=== PATIENT | female | born 2000 | race Caucasian/White ===

== ENCOUNTER → 2020-03-06 | Outpatient (CLI) | payer OTHER, SELFPAY | END | disposition home or self-care (01) | PROVIDERS: PCP Family Medicine; Referring Provider Obstetrics & Gynecology; Visit Provider Obstetrics & Gynecology | DX: O30.003 Twin pregnancy, unspecified number of placenta and unspecified number of amniotic sacs, third trimester (principal); Z3A.40 40 weeks gestation of pregnancy | CPT/HCPCS: 87081 ==

== ENCOUNTER 2020-03-12 02:30 | Inpatient (IN) | payer SELFPAY, OTHER ==
[2020-03-12] VITALS (15 sets, daily range): BP systolic 114–159; BP diastolic 64–109; PULSE 76–142; RESP 16–22; TEMP 37.1–37.6; O2SAT 96–100; BMI 28.7
--- NOTE | 2020-03-12 | PLAC_PTH ---
PATIENT: IGNACIA BANG LOC: [facility] U#:[id number] AGE/SX: 19/F ROOM: WP007 RE03/12/[address]: Dr. Liliam Farias MD : [id number] BED: 1 DIS: 03/14/2020 SPEC #: [id number] RECD: 03/12/20 04:44 STATUS: YARITZA CHA #: [id number] CRISTEL: 03/12/20 00:[address]: Liliam Farias DEPT: SURGICAL PATHOLOGY RECD BY: Willian Kemp ENTERED: 03/12/20 10:06 SP TYPE: PLACENTA OTHR DR: Dr. Barrera Davies MD Tissues: Placenta, NOS Procedures: Surgery Specimen Level V HEADER OPERATION: Primary section PRE-OP DIAGNOSIS: Twins, prolapsed cord of baby 1 TISSUE SUBMITTED: Placenta MICROSCOPIC DIAGNOSIS Twin placenta - dichorionic and diamniotic twin placenta. Placenta A (with a true knot in the umbilical cord, as per Dr. Farias): Placental disc - third trimester placenta (464 gm). - Focal intervillous and perivillous fibrin deposition and infarction (largest measuring 1.5 cm in greatest dimension. Membranes - no pathologic diagnosis. Umbilical cord - three blood vessels, a true knot and acute funisitis. Placenta B: Placental disc - third trimester placenta (385 gm). Membranes - no pathologic diagnosis. Umbilical cord - three blood vessels, no pathologic diagnosis. SJ:beba 03/14/20 COMMENT Case has been reviewed in consultation with Dr. Wei who concurs with the above diagnosis. IDC:AM MICROSCOPIC DESCRIPTION Slides are reviewed. GROSS DESCRIPTION SPECIMEN: TWIN PLACENTA / CLINICAL INFORMATION: A. Weight: A - 2.977 kg, at 1 minute 0, 5 minutes 0; B - 2.745 kg B. Gestational Age: 41 weeks C. Sex: A - Male, B - Male The specimen consists of two placental discs with attached membranes and umbilical cords. One of the placentas shows umbilical cord with a true knot with attached membranes. This placenta is designated as placenta A. per Dr. Farias. PLACENTA A: PLACENTAL WEIGHT (POST FIXATION): 464 gm PLACENTAL DIMENSIONS: 15 x 13 x 3.7 cm PLACENTAL SHAPE: Usual ovoid PLACENTAL WEIGHT FOR GESTATIONAL AGE: Within 10-99th percentile MEMBRANES - Present A. Insertion: Marginal B. Site of rupture from edge: At edge of placental disc C. Color of membrane: Saba-joshi D. Abnormalities: None UMBILICAL CORD - Present A. Color: Saba-joshi B. Insertion: Eccentric C. Length: 60 cm D. Diameter: 1 cm E. Number of vessels: Three F. Abnormalities: One true knot PLACENTA B: PLACENTAL WEIGHT (POST FIXATION): 385 gm PLACENTAL DIMENSIONS: 17 x 15 x 2.5 cm PLACENTAL SHAPE: Usual ovoid PLACENTAL WEIGHT FOR GESTATIONAL AGE: Within 10-99th percentile MEMBRANES - Present A. Insertion: Marginal B. Site of rupture from edge: At edge of placental disc C. Color of membrane: Saba-joshi D. Abnormalities: None UMBILICAL CORD - Present A. Color: Saba-joshi B. Insertion: Eccentric C. Length: 44 cm D. Diameter: 1 cm E. Number of vessels: Three F. Abnormalities: None PLACENTAL DISC - Present A. Color of surface: Saba-joshi B. surface abnormalities: None C. Maternal cotyledons: Intact with minimal tears D. Attached retro placental clot: No clot E. Cut surface: Dark red and spongy F. Lesions: None G. Separate clot: Absent SECTIONS SUBMITTED: 11 cassettes 1 - Dividing membrane 2 - Placenta B end 3 - Placenta B maternal end 4 - Placenta B peripheral membranes 5 & 6 - Placental disc B 7 - Placental A membranes 8 - Placenta A end 9 - Placental A maternal end 10 & 11 - Placental disc A AM:beba 03/13/20 TC:2 CPT: 70072 x2
[2020-03-12] MEDS: Oxytocin 30 units/NS 500 ml 30 UNITS/500 ML IV.SOLN 167 UNITS IV (03:50)
--- NOTE | 2020-03-12 04:02 | PCM.OPRPT ---
Delivery Classification: Stat Final STANLEY: 03/05/20 Final STANLEY Source: LMP Gestational age: 41 Weeks and 0 Days delinquency prevention social worker: Jayjay Morgan Type of Anesthesia:: General Implants Used: none Date of Procedure: 03/12/20 Pre-Operative Diagnosis: twins, prolapsed cord, breech baby 1 Post-Operative Diagnosis: same Indications for : - - twins, breech twin 1 w/ prolapsed cord Description of Procedure: I received a phone call that the patient was being transported to the hospital, that her programmable logic controller assembler had reported to labor and delivery that baby A was footling breech, complete and a prolapsed cord. The team was assembled, and we were awaiting her in the labor and delivery OR team when she arrived. I quickly scanned her as she arrived into the room and could see both heads and the abdomen. The patient was transferred to the operating table and quickly verbal consent was obtained for the surgery. Cord was protruding from the vagina. Time was not taken to obtain heart rates. However, as the patient was being intubated I did a quick exam and could not palpate a pulse in the cord that was prolapsing. I could feel feet of baby A and intact membranes in the head of baby B. The patient was placed under general anesthetic. Betadine was splashed on the abdomen. The patient was then draped in the section initiated. The patient was taken to the operating room. She was prepped and draped in the dorsal supine position with a leftward tilt. A Pfannenstiel skin incision was made approximately 2 cm above the symphysis pubis and carried through to underlying layer fascia with the scalpel. The fascia was incised incised in the midline and extended laterally with the Alvarado scissors. The fascia was dissected off the rectus muscles with blunt and sharp dissection. The rectus muscles were in the midline and the peritoneum was entered bluntly. The peritoneal incision was stretched and the bladder blade was placed. The uterine incision was made in a low transverse fashion with the scalpel and extended superiorly and inferiorly with blunt dissection. Baby B's buttocks were brought to the incision in the legs and hips were brought out easily. The shoulders and head were delivered easily in less than 10 seconds. The cord was clamped quickly clamped and cut because the was pale, limp and no heart rate was noted as I was clamping the cord. The amniotic membranes of baby B were ruptured bluntly and clear amniotic fluid returned. The infant's head was brought to the incision in the flexed position and delivered without difficulty. The remainder of the infant was delivered with gentle traction and fundal pressure in the standard fashion. The mouth and nares were bulb suctioned. The cord was clamped and cut as the was stimulated. The infant was handed off to the waiting nursing staff. The placenta was delivered with fundal massage and gentle traction in the standard fashion. The uterus was exteriorized and cleared of all clots and debris. The uterine incision was closed with #1 Vicryl in a running locked fashion. A second layer of the same suture was used in an imbricating fashion. The incision was examined and was found to be hemostatic. There is a small hematoma along the left side of the incision and a [id number] Vicryl suture was placed around this. This was observed for several minutes and not expanding. The uterus was placed back into the peritoneal cavity and hemostasis was again confirmed. The rectus muscles were examined and any bleeding was Bovie cauterized. The parietal peritoneum and rectus muscles were closed en bloc with an 0 Vicryl running suture. The surgical teams outer gloves were then changed. The rectus fascia was examined and any bleeding was Bovie cauterized and the rectus fascia was closed with 1 Vicryl suture in a running standard fashion. The subcutaneous tissue was examining and any bleeding was Bovie cauterized. The subcutaneous tissue was reapproximated with 3-0 Vicryl suture. The skin was closed in a subcuticular fashion by the BATCH PLANT SUPERVISOR with me present in the labor and delivery suite. I performed the remainder of the procedure with assistance. All sponge, lap, and needle counts were correct. The patient was taken to her room for recovery in a stable condition. Amniotic Membrane Rupture Type: Spontaneous Amniotic Fluid Description: Clear Placenta Disposition: Sent to Pathology Drain: Duenas to straight drain Cord Entanglement: None Esitmated Blood Loss (ml): 1000 Infant Gender: Male (1 minute): 0 (5 minute): 0 Delayed cord clamping: No Antibiotic Given: Ancef 2 grams IV x1 - after induction of anesthesia Complications: None - Admit VTE Documentation VTE Present on Admission: No VTE Mechan Device Prophylaxis: SCD's VTE Pharm Prophylaxis ordered?: No Reason prophylaxis not ordered:: Treatment Not Indicated Baby B - Information Amniotic Membrane Rupture Type: Artificial Presentation: Vertex - Operative Information Cord Entanglement: None B gender: Male
--- NOTE | 2020-03-12 04:14 | HP.PCM_ITS ---
History Date of Admission: 03/12/20 Final STANLEY: 03/05/20 Final STANLEY Source: LMP Gestational age: 41 Weeks and 0 Days History of this : This is a 19 year-old, 1 para 0 presents at 41 weeks gestation with dichorionic diamniotic twin gestation. Her reports that she went into labor at approximately 3 pm on 03/11/2020. He states that the shuttle veneering supervisor arrived around 5 PM and soon after her water broke. The shuttle veneering supervisor is not present for me to discuss the case with, but at some point, the cord prolapsed and the shuttle veneering supervisor called labor and delivery to inform us that the patient would be arriving with a footling breech and prolapsed cord completely dilated. An OB ERT was called. I arrived to labor and delivery and the ELECTRONICS ASSEMBLER AND TESTER and I were present and ready to perform an emergent section. Patient was brought directly to the operating room. The patient had been getting her routine care with her community service specialist. She did have an ultrasound in our office last week, and was counseled on risks of continuing the and home versus induction and delivery in a hospital setting. Patient at that point declined induction and planned home delivery. Smoking Status: Never smoker Alcohol: None Number of Fetus(es): 2 NST - FHR Rate Baby A Baseline: n/a - FHR Rate Baby B Baseline: n/a History Past Pregnancies: Past Pregnancies Delivery Date Name GA/ Weeks Outcome Route Wt Sex Labor Length Anesthesia Delivery Location Provider FOB Expected Infant Delivery Method: Stat Section Review of Systems Constitutional: Denies: Chills, Fever Eyes: Denies: Blurred vision HEENT: Denies: Difficulty Hearing Cardiovascular: Denies: Chest Pain Respiratory: Denies: Cough, Shortness of Breath Gastrointestinal: Denies: Diarrhea Genitourinary: Denies: Dysuria Skin: Denies: Rash Neurological: Denies: Change in Speech, Slurred speech Physical Exam General: Well developed, Well nourished, - - uncomfortanble, panting with contractions Cardiovascular: Regular rate Lungs: Normal air movement Abdomen: Soft, Non Tender, Non-Distended, Gravid Extremities:: No edema Neurological: Neuro grossly intact ASSEMBLY ADJUSTER: Normal external genitalia - cord prolapsing from vagina Cervix Dilation (cm): 10 Assessment/Plan This is a 19 year-old, @ 41 weeks, footling breech, prolapsed cord baby A, baby b vtx and membranes intact team was ready for stat c/s patient consented verbally for stat c/s as twin with both still in utero and cord prolapse.
[2020-03-12 04:31] LABS: Absolute Lymphocyte Count 1.12 X10^3/uL (0.83-4.51); Absolute Neutrophil Count 21.9 X10^3/uL (2.0-7.7); Basophil# 0.05 X10^3/uL; Basophil% 0.2 % (0-1); Eosinophil# 0.02 X10^3/uL; Eosinophils% 0.1 % (0-5); Hematocrit 40.4 % (37-47); Hemoglobin 14.2 g/dL (12.0-15.0); Lymphocyte # 1.12 X10^3/ul (4.0); Lymphocyte % 4.6 % (19-41); Mean Corp Hgb Conc 35.1 g/dL (32-36); Mean Corpuscular Hgb 32.1 pg (27.0-32.0); Mean Corpuscular Volume 91.4 fL (81-99); Mean Platelet Vol. 12.4 fl (6.2-12.0); Monocyte# 1.35 X10^3/uL; Monocyte% 5.5 % (0-10); NRBC Flagged by Analyzer 0 % (0-5); Neutrophil # 21.87 X10^3/uL (2.7-7.7); Neutrophil % 88.8 % (47-70); POSITIVE DIFFERENTIAL YES; Platelet Count 193 K/mm3 (150-450); RBC Distribution Width CV 11.6 % (11.6-14.6); RBC Distribution Width SD 38.8 fl (35.1-43.9); Red Blood Count 4.42 M/mm3 (4.2-5.4); White Blood Count 24.6 K/mm3 (4.4-11.0)
[2020-03-12] MEDS: HYDROmorphone 1 MG/ML Syringe IV ×2 (04:33→07:44)
[2020-03-12 04:35] LABS: Differential Indicated SCAN CRITERIA MET
[2020-03-12 06:40] LABS: Rubella IgG 0.7 IU/mL
[2020-03-12] MEDS: Lactated Ringers 1,000 ML 100 ML IV (07:00)
[2020-03-12 07:07] LABS: HIV - WCH Non-Reactive (Nonreactive); Hepatitis B Surface Antigen Non-Reactive (Nonreactive); Hepatitis C Antibody Non-Reactive (Nonreactive)
[2020-03-12] MEDS: Ketorolac 30 MG/ML Syringe IV ×3 (09:30→20:52)
[2020-03-12] MEDS: Cefazolin 1 GM/50 ML BAG IV ×2 (12:28→19:29)
[2020-03-12] MEDS: oxyCODONE 5 MG Tablet PO ×2 (12:29→18:48)
[2020-03-12] MEDS: Senna/Docusate Sodium 1 Tablet PO (12:29)
--- NOTE | 2020-03-12 15:56 | CASEMGMT ---
Social Work Labor and Delivery Consult received and noted. Received report from weigher and charger this date regarding twin delivery, with one loss and one twin still living. Will plan to see mother of babies tomorrow, 03.13.2020, for assessment/support/coping/resources. Working today on gathering appropriate resources and support options pertinent to the dynamics of this family's loss. -RHONDA Johnston, SALES NEGOTIATOR
[2020-03-12 17:49] LABS: Bacteria 0 SEEN /hpf (None Seen); Mucous, Urine 0 SEEN /hpf (<or=2+); Squamous Epithelial Cells - UA 0 SEEN /hpf (5-10)
[2020-03-12 18:09] LABS: Color, Urine Yellow (Yellow); Glucose, Dipstick Normal (Normal); Ketone-Dipstick Negative (Negative); Leukocyte Esterase-Dipstick 100 /ul (Negative); Nitrite-Dipstick Negative (Negative); Occult Blood-Urine 150 /ul (Negative); Protein-Dipstick Negative (Negative); Specific Gravity, Urine 1.005 (1.002-1.030); Urine Bilirubin Dipstick Negative (Negative); Urine Clarity Clear (Clear); Urine Urobilinogen Normal (Normal)
[2020-03-12 18:35] LABS: Red Blood Cells-Urine 0-5 SEEN /hpf (0-5); White Blood Cells 0-5 SEEN /hpf (0-5)
[2020-03-12 18:38] LABS: Amphetamine Urine VISTA NEGATIVE (<1000 ng/mL); Barbiturate Urine VISTA NEGATIVE (< 200 ng/mL); Benzodiazepine Urine VISTA NEGATIVE (< 200 ng/mL); Cocaine Urine VISTA NEGATIVE (< 300 ng/mL); Ecstacy Urine VISTA NEGATIVE (< 500 ng/mL); Methadone Urine VISTA NEGATIVE (< 300 ng/mL); PCP Urine VISTA NEGATIVE (< 25 ng/mL); THC Urine VISTA NEGATIVE (< 50 ng/mL); Vista UDS pH Range 6
[2020-03-12] MEDS: 0.9% Saline Lock 10 ML Syringe IV ×2 (19:30→20:54)
[2020-03-12 20:01] LABS: Chlamydia Trachomatis by PCR Negative (Negative); Neisserai gonorrhoeae by PCR Negative (Negative); Probe Check PASS; Sample Adequacy Control PASS; Specimen Processing Control PASS
--- NOTE | 2020-03-12 22:35 | NURSING ---
Addendum entered by Liliya Boyer 03/13/20 07:33: POC -plan of care Original Note: late entry by Kimberly RN event occurred 03/12/20 0153 This recharger received call from Vonda Valera baby formula worker about patient coming into unit in approximately 20-25 minutes. Cloth Inspector stated that patient had seen Dr. Black in office for the first time last week. Cloth Inspector states that patient is expecting twins, completely dilated with a prolapsed cord and footling breech. After hanging up with baby formula worker, this RN immediately organized staff and prepared them for patients arrival. 0157 Dr Farias called and informed of patient's pending arrival; she stated she would be immediately in and to take patient straight to OR#1 for assessment and delivery 0159 Anesthesia and EGG GRADER called for patients pending arrival and anticipated POC; both confirm they are on their way to unit. 0200 Early Childhood Special Educator and RTT called and informed of patient's pending arrival and prepped for POC. All staff on unit preparing for patients arrival and preparing c/s room and resuscitation room. 0202 Anesthesia in c/s #1 0203 subassembly supervisor called and updated, states she will be coming down to unit. Special Care Nursery informed and states they are available if needed. 0206 FIBER OPTICS ENGINEER in room for delivery 0207 hospice admitting clerk in room, assisting nursery nurse, extra staff and FIBER OPTICS ENGINEER preparing resuscitation room. 0213 Dr. Farias on unit 0223 JONA on unit 0233 patient enters c/s room on stretcher laying on right side, ultrasound preformed by Dr. Farias immediately to discover both heads in abdomen, time not taken to obtain FHR per Dr. Farias; verbal consent received for section and staff proceeded with primary c/s; Dr. Farias was unable to palpate FHR on cord that was prolapsed during intubation of patient.
[2020-03-13] MEDS: oxyCODONE 5 MG Tablet PO ×4 (00:54→18:28)
[2020-03-13 01:05] VITALS: BP 125/72; PULSE 94; RESP 16; TEMP 36.9
[2020-03-13] MEDS: Ketorolac 30 MG/ML Syringe IV ×4 (03:36→20:44)
[2020-03-13] MEDS: 0.9% Saline Lock 10 ML Syringe IV ×7 (03:36→20:43)
[2020-03-13 04:17] LABS: Hemoglobin 9.9 g/dL (12.0-15.0); Mean Corp Hgb Conc 34.1 g/dL (32-36); Mean Corpuscular Hgb 32.1 pg (27.0-32.0); Mean Corpuscular Volume 94.2 fL (81-99); Platelet Count 170 K/mm3 (150-450); RBC Distribution Width CV 12.2 % (11.6-14.6); RBC Distribution Width SD 41.9 fl (35.1-43.9); Red Blood Count 3.08 M/mm3 (4.2-5.4); White Blood Count 17.1 K/mm3 (4.4-11.0)
[2020-03-13] MEDS: Senna/Docusate Sodium 1 Tablet PO (05:06)
--- NOTE | 2020-03-13 07:55 | PCM.PN.OB ---
Subjective: pain well controlled, average lochia - Physical Exam Vitals/I&O's: Vital Signs Temp Pulse Resp BP Pulse Ox 98.5 F 94 16 125/72 H 96 03/13/20 01:05 03/13/20 01:05 03/13/20 01:05 03/13/20 01:05 03/12/20 19:36 Oxygen Delivery Method Room Air Weight: 73.482 kg Body Mass Index (BMI) 28.7 Intake and Output for Last 24 Hours 03/11/20 03/12/20 03/13/20 23:59 23:59 23:59 Intake Total 2300 / 2300 Output Total 2800 / 2800 1100 / 1100 Balance -500 / -500 -1100 / -1100 General: Alert, Cooperative, No apparent distress Cardiovascular: Regular rate Abdomen: Soft, Distended - moderately, Tender - appropriately, - - fundus firm below umbilicus Extremities: Edema - trace Skin: Incision - bandage is clean, dry and intact Laboratory Results 03/12/20 02:35: Blood Type Cancelled, A1 Antigen Typing Cancelled, Rho(D) Type Cancelled, Antibody Screen Cancelled 03/12/20 13:50: Blood Type O POSITIVE, Antibody Screen NEGATIVE 03/12/20 17:00: Urine Color Yellow, Urine Clarity Clear, Urine pH 7.0, Ur Specific [place] 1.005, Urine Protein Negative, Urine Glucose (UA) Normal, Urine Ketones Negative, Urine Occult Blood 150 H, Urine Nitrite Negative, Urine Bilirubin Negative, Urine Urobilinogen Normal, Ur Leukocyte Esterase 100 H, Urine RBC 0-5 SEEN, Urine WBC 0-5 SEEN, Ur Squamous Epith Cells 0 SEEN, Urine Bacteria 0 SEEN, Urine Mucus 0 SEEN 03/12/20 17:00: Chlam trachomat DNA PCR Negative, N.gonorrhoeae DNA (PCR) Negative 03/12/20 17:00: Urine Opiates Screen NEGATIVE, Urine Methadone Screen NEGATIVE, Ur Barbiturates Screen NEGATIVE, Ur Phencyclidine Scrn NEGATIVE, Ur Amphetamines Screen NEGATIVE, U Methamphetamin-MDMA NEGATIVE, U Benzodiazepines Scrn NEGATIVE, Urine Cocaine Screen NEGATIVE, U Cannabinoids Screen NEGATIVE, Ur Drug Screen Comment 03/13/20 04:10: WBC 17.1 H, RBC 3.08 L, Hgb 9.9 L, Hct 29.0 L, MCV 94.2, MCH 32.1 H, MCHC 34.1, RDW Std Deviation 41.9, RDW Coeff of Jon 12.2, Plt Count 170, MPV 11.0 Current Medications Acetaminophen (Tylenol) 1,000 mg PO Q8H PRN PRN PRN Reason: Pain Score 1-3/10;Temp>99.6F Bisacodyl (Dulcolax) 10 mg RECTAL UD PRN PRN Reason: If no BM Hydrocortisone (Hytone) 1 applic TOPICAL TID PRN PRN; Protocol PRN Reason: Discomfort Naloxone HCl 4 mg/ Dextrose 504 mls @ 0 mls/hr IV .Q0M PRN; Protocol PRN Reason: Respiratory depression Ketorolac Tromethamine (Toradol (Bkc)) 30 mg IV Q6H SARA Stop: 03/14/20 03:01 Last Admin: 03/13/20 03:36 Dose: 30 mg Documented by: Methylergonovine Maleate (Methergine) 0.2 mg IM X1 PRN PRN Reason: Uterine Atony Naloxone HCl (Narcan) 0.02 mg IV Q1M PRN PRN Reason: RR <10 and pt unresponsive Naproxen (Naprosyn) 250 - 500 mg PO Q8H PRN PRN PRN Reason: Pain Score 1-3/10 Ondansetron HCl (Zofran) 4 mg IV Q4H PRN PRN PRN Reason: Nausea Oxycodone HCl (Oxyir) 5 - 10 mg PO Q4H PRN PRN PRN Reason: Pain Score 4-10/10 Last Admin: 03/13/20 05:05 Dose: 10 mg Documented by: Prochlorperazine Edisylate (Compazine Iv) 10 mg IV Q6H PRN PRN PRN Reason: NAUSEA Senna/Docusate Sodium (Senokot-S, Johanna-Colace) 1 - 2 tablet PO DAILY PRN PRN Reason: Constipation Last Admin: 03/13/20 05:06 Dose: 1 tablet Documented by: Simethicone (Mylicon) 80 mg PO PCHS PRN PRN Reason: Indigestion/stomach pain Last Admin: 03/13/20 01:41 Dose: 80 mg Documented by: Sodium Chloride () 5 - 15 ml IV UD PRN PRN Reason: SALINE FLUSH Last Admin: 03/13/20 03:39 Dose: 10 ml Documented by: Medical Necessity - Tobacco Use Smoking Status: Never smoker Assessment/Plan postop day #1 s/p stat c/s, twin , twin A stillborn patient is doing well from surgery standpoint, no flatus or bm. Pain well controlled, encouraged patient to work on nursing and stay until tomorrow ambulate
[2020-03-13 09:45] VITALS: BP 120/74; PULSE 108; RESP 20; TEMP 37.6; O2SAT 96
[2020-03-13] MEDS: Ondansetron 4 MG/2 ML Vial IV ×2 (10:16→20:38)
[2020-03-13 14:00] VITALS: BP 118/77; PULSE 96; TEMP 37.3; O2SAT 95
--- NOTE | 2020-03-13 14:26 | NURSING ---
at 1420, bakari home present to come and take baby to home. support given
--- NOTE | 2020-03-13 18:09 | NURSING ---
Vomited moderate amount undigested food. Complaining of abdominal pain. Abdomen firm with bowel sounds present. Isabel Marinelli called and notified. Will call back
--- NOTE | 2020-03-13 18:21 | NURSING ---
anuradha returned call, orders for npo with sips of clears and cbcd now
[2020-03-13 19:04] LABS: Absolute Lymphocyte Count 1.51 X10^3/uL (0.83-4.51); Absolute Neutrophil Count 14.5 X10^3/uL (2.0-7.7); Basophil# 0.03 X10^3/uL; Basophil% 0.2 % (0-1); Eosinophil# 0.01 X10^3/uL; Eosinophils% 0.1 % (0-5); Hematocrit 30.1 % (37-47); Hemoglobin 10.4 g/dL (12.0-15.0); Lymphocyte # 1.51 X10^3/ul (4.0); Lymphocyte % 8.6 % (19-41); Mean Corp Hgb Conc 34.6 g/dL (32-36); Mean Corpuscular Hgb 32.7 pg (27.0-32.0); Mean Corpuscular Volume 94.7 fL (81-99); Mean Platelet Vol. 11.4 fl (6.2-12.0); Monocyte# 1.43 X10^3/uL; Monocyte% 8.1 % (0-10); NRBC Flagged by Analyzer 0 % (0-5); Neutrophil # 14.53 X10^3/uL (2.7-7.7); Neutrophil % 82.4 % (47-70); Platelet Count 201 K/mm3 (150-450); RBC Distribution Width CV 12.1 % (11.6-14.6); RBC Distribution Width SD 42.5 fl (35.1-43.9); Red Blood Count 3.18 M/mm3 (4.2-5.4); White Blood Count 17.6 K/mm3 (4.4-11.0)
--- NOTE | 2020-03-13 19:37 | NURSING ---
1830 reporting I did just pass gas.
[2020-03-13 20:50] VITALS: BP 123/78; PULSE 97; RESP 18; TEMP 36.7; O2SAT 95
--- NOTE | 2020-03-13 22:45 | NURSING ---
RN received phone call from Juan Marinelli CNM at this time for pt status update. RN notified CNM of latest pt labs, including WBC 17.6 from 17.1 and Hgb 9.9 to 10.4, with other labs trending more towards normal limits. RN also notified CNM of pt tenderness with uterine palpation and abdominal distension. CNM also notified of pt passing gas and feeling relief with RN administering mylicon EMILY. RN to continue with current plan of care.
--- NOTE | 2020-03-13 23:45 | NURSING ---
stretch morgan noted
[2020-03-14] MEDS: oxyCODONE 5 MG Tablet PO (00:01)
[2020-03-14] MEDS: Ketorolac 30 MG/ML Syringe IV (03:07)
[2020-03-14] MEDS: 0.9% Saline Lock 10 ML Syringe IV (03:08)
[2020-03-14 03:20] VITALS: BP 132/90; PULSE 95; RESP 20; TEMP 37.4; O2SAT 96
--- NOTE | 2020-03-14 03:20 | NURSING ---
Addendum entered by Sonya Stafford 03/14/20 04:18: Episode occurred 30min after oxyIR administration per pt. Original Note: Pt reported vomiting after last oxyIR administration. RN encouraged pt to attempt using other medications for pain relief. RN unable to visualize emesis. Will continue to monitor pt.
[2020-03-14] MEDS: Acetaminophen 500 MG Tablet 1000 MG PO (05:39)
[2020-03-14 08:06] LABS: Rapid Plasmin Reagin (RPR) NONREACTIVE (NONREACTIVE)
[2020-03-14 08:40] VITALS: BP 128/81; PULSE 82; RESP 16; TEMP 37
--- NOTE | 2020-03-14 09:00 | DCINST_ITS ---
Discharge Diet: No Restrictions Discharge Activity: Return to Normal Activity, May Not Drive - for 2 weeks, May not drive while taking narcotic pain medications., May Shower, May Take a Tub Bath - in 7 days. May resume sexual activity in: 4-6 weeks Lifting Restrictions: 20 pounds Additional Activity Instructions:: Nothing in the vagina for 4-6 weeks. You may return to work/school in 6 weeks. Call your doctor if your incision/area has: Continuous Slow Oozing, Sudden Increased Bleeding, Increased Pain/ Swelling, Increased Redness, Foul Smelling Discharge Call your doctor if you observe: Fever of 101 or Higher, Using more than one pad per hour - for 2 hours Suture Line Care: Avoid Pulling/Pushing, Avoid Pinching/Bending Cleanse incision/area with: Keep Dressing Clean & Dry Additional Instructions: If you experience any of the following, contact your healthcare provider. * Bleeding that soaks a pad every hour for 2 hours * Fever 100.4 or higher * Unrelieved incision or abdominal pain * Swelling, redness, discharge or bleeding from your incision or episiotomy site * Your incision begins to separate * Problems urinating (including inability to urinate or burning while urinating). * Visual changes * Severe headache * Flu-like symptoms * Pain or redness in one of both of your breasts * Pain, warmth, tenderness or swelling in your legs, especially the calf area * Frequent nausea and vomiting * Symptoms of depression or anxiety If you experience any of the following, call 911 or go to the nearest Emergency Room. * Chest pain * Problems breathing * Seizure activity * Partial or complete paralysis of a body part, slurred speech, weakness or drooping of the face, or a sudden inability to walk or hold your balance Allergies/Adverse Reactions: Allergies No Known Allergies Allergy (Verified 03/12/20 04:21) Medications to take at Discharge One Tablet 1 tab PO DAILY 03/12/20 Ibuprofen [Motrin] 800 mg PO TID PRN PRN #60 tab 03/13/20 Oxycodone [Oxyir] 5 mg PO Q6H PRN PRN 7 Days #15 tab 03/13/20 The following prescriptions were given: Ibuprofen [Motrin] 800 mg PO TID PRN PRN #60 tab PRN Reason: Pain Transmission Status: Received by [facility] [id number] Oxycodone [Oxyir] 5 mg PO Q6H PRN PRN 7 Days #15 tab PRN Reason: severe pain Transmission Status: Received by [facility] [id number] Follow-Up: Call to make an appointment with your doctor for an incision check in 1-2 weeks. You will also need a 6 week post- follow up appointment. Test results from this visit will be discussed in further detail at your follow- up appointment, if applicable. Please Follow Up With: Liliam Farias MD - Call to make an appointment for an incision check in 1-2 [phone] When: You will need a post check in 6 weeks. Primary Care Physician: Barrera Davies MD [Primary Care Provider] -
--- NOTE | 2020-03-14 09:00 | PN.OBGYN_ITS ---
Subjective: pain well controlled, average lochia. No further emesis. +flatus, no BM. feliz. clear liquids - Physical Exam Vitals/I&O's: Vital Signs Temp Pulse Resp BP Pulse Ox 98.6 F 82 16 128/81 H 96 03/14/20 08:40 03/14/20 08:40 03/14/20 08:40 03/14/20 08:40 03/14/20 03:20 Oxygen Delivery Method Room Air Weight: 73.482 kg Body Mass Index (BMI) 28.7 Intake and Output for Last 24 Hours 03/12/20 03/13/20 03/14/20 23:59 23:59 23:59 Intake Total 2300 / 2300 Output Total 2800 / 2800 1100 / 1100 Balance -500 / -500 -1100 / -1100 General: Alert, Cooperative, No apparent distress Abdomen: Soft, Distended - moderately, Tender - appropriately Extremities: Edema Skin: Incision - bandage clean dry and intact Laboratory Results 03/12/20 02:35: RPR NONREACTIVE 03/13/20 18:35: WBC 17.6 H, RBC 3.18 L, Hgb 10.4 L, Hct 30.1 L, MCV 94.7, MCH 32.7 H, MCHC 34.6, RDW Std Deviation 42.5, RDW Coeff of Jon 12.1, Plt Count 201, MPV 11.4, Immature Gran % (Auto) 0.600, Neut % (Auto) 82.4 H, Lymph % (Auto) 8.6 L, Schleicher % (Auto) 8.1, Eos % (Auto) 0.1, Baso % (Auto) 0.2, Absolute Neuts (auto) 14.5 H, Absolute Lymphs (auto) 1.51, Nucleated RBC % 0 Current Medications Acetaminophen (Tylenol) 1,000 mg PO Q8H PRN PRN PRN Reason: Pain Score 1-3/10;Temp>99.6F Last Admin: 03/14/20 05:39 Dose: 1,000 mg Documented by: Bisacodyl (Dulcolax) 10 mg RECTAL UD PRN PRN Reason: If no BM Hydrocortisone (Hytone) 1 applic TOPICAL TID PRN PRN; Protocol PRN Reason: Discomfort Naloxone HCl 4 mg/ Dextrose 504 mls @ 0 mls/hr IV .Q0M PRN; Protocol PRN Reason: Respiratory depression Methylergonovine Maleate (Methergine) 0.2 mg IM X1 PRN PRN Reason: Uterine Atony Naloxone HCl (Narcan) 0.02 mg IV Q1M PRN PRN Reason: RR <10 and pt unresponsive Naproxen (Naprosyn) 250 - 500 mg PO Q8H PRN PRN PRN Reason: Pain Score 1-3/10 Ondansetron HCl (Zofran) 4 mg IV Q4H PRN PRN PRN Reason: Nausea Last Admin: 03/13/20 20:38 Dose: 4 mg Documented by: Oxycodone HCl (Oxyir) 5 - 10 mg PO Q4H PRN PRN PRN Reason: Pain Score 4-10/10 Last Admin: 03/14/20 00:01 Dose: 5 mg Documented by: Prochlorperazine Edisylate (Compazine Iv) 10 mg IV Q6H PRN PRN PRN Reason: NAUSEA Senna/Docusate Sodium (Senokot-S, Johanna-Colace) 1 - 2 tablet PO DAILY PRN PRN Reason: Constipation Last Admin: 03/13/20 05:06 Dose: 1 tablet Documented by: Simethicone (Mylicon) 80 mg PO PCHS PRN PRN Reason: Indigestion/stomach pain Last Admin: 03/13/20 22:48 Dose: 80 mg Documented by: Sodium Chloride () 5 - 15 ml IV UD PRN PRN Reason: SALINE FLUSH Last Admin: 03/14/20 03:08 Dose: 10 ml Documented by: Medical Necessity - Tobacco Use Smoking Status: Never smoker Assessment/Plan POD#2 s/p stat c/s doing well, mild ileus. Recommend patient stay until BM but she declines due to calling hours and for twin A. D/ wher continue stool softeners, if emesis or other issue will need to call office or return she is comfortable w/ plan
--- NOTE | 2020-03-14 10:34 | DS.PCM_ITS ---
Discharge Date and Diagnosis Date of Admission: 03/12/20 Date of Discharge: 03/14/20 Hospital Course and Treatment Operations: - - Primary low transverse section via Pfannenstiel skin incision Procedures: None Summary of Care Provided: The patient is a 19 year old 1 para 0 female admitted at 41 weeks gestation for cord prolapse of twin A. She underwent a stat low transverse section via Pfannenstiel skin incision. She had a double layer closure of the uterus with 0 Vicryl sutures. The surgery was performed without complications under general anesthetic because of baby A not having a heartbeat and having a prolapsed cord for over 30 minutes. Baby A was born without a pulse or respiratory effort, pronounced after extensive resuscitative efforts by the pediatrics team. Baby B was vigorous. Postoperatively, the patient had an ileus with vomiting on postoperative day 1. She was placed on clear fluids. On postoperative day #2 she was passing flatus but not had a bowel movement yet. I recommended that she stay till postoperative day #3, but patient declines. They have calling hours for her son today and will leave regardless of my recommendations. Patient was discharged home but I discussed with them the importance of calling if she gets a fever, vomiting or any other concerns. They were comfortable with this plan. She was discharged home with routine instructions and prescriptions and to follow-up in my office in 1-2 in 6 weeks or as needed. We discussed the use of pain medications and stool softeners. [] - Physical Exam Vitals/I&O's: Vital Signs Temp Pulse Resp BP Pulse Ox 98.6 F 82 16 128/81 H 96 03/14/20 08:40 03/14/20 08:40 03/14/20 08:40 03/14/20 08:40 03/14/20 03:20 Oxygen Delivery Method Room Air Weight: 73.482 kg Body Mass Index (BMI) 28.7 Intake and Output for Last 24 Hours 03/12/20 03/13/20 03/14/20 23:59 23:59 23:59 Intake Total 2300 / 2300 Output Total 2800 / 2800 1100 / 1100 Balance -500 / -500 -1100 / -1100 Laboratory Results 03/12/20 02:35: RPR NONREACTIVE 03/13/20 18:35: WBC 17.6 H, RBC 3.18 L, Hgb 10.4 L, Hct 30.1 L, MCV 94.7, MCH 32.7 H, MCHC 34.6, RDW Std Deviation 42.5, RDW Coeff of Jon 12.1, Plt Count 201, MPV 11.4, Immature Gran % (Auto) 0.600, Neut % (Auto) 82.4 H, Lymph % (Auto) 8.6 L, [place] % (Auto) 8.1, Eos % (Auto) 0.1, Baso % (Auto) 0.2, Absolute Neuts (auto) 14.5 H, Absolute Lymphs (auto) 1.51, Nucleated RBC % 0 Current Medications Acetaminophen (Tylenol) 1,000 mg PO Q8H PRN PRN PRN Reason: Pain Score 1-3/10;Temp>99.6F Last Admin: 03/14/20 05:39 Dose: 1,000 mg Documented by: Bisacodyl (Dulcolax) 10 mg RECTAL UD PRN PRN Reason: If no BM Hydrocortisone (Hytone) 1 applic TOPICAL TID PRN PRN; Protocol PRN Reason: Discomfort Naloxone HCl 4 mg/ Dextrose 504 mls @ 0 mls/hr IV .Q0M PRN; Protocol PRN Reason: Respiratory depression Methylergonovine Maleate (Methergine) 0.2 mg IM X1 PRN PRN Reason: Uterine Atony Naloxone HCl (Narcan) 0.02 mg IV Q1M PRN PRN Reason: RR <10 and pt unresponsive Naproxen (Naprosyn) 250 - 500 mg PO Q8H PRN PRN PRN Reason: Pain Score 1-3/10 Ondansetron HCl (Zofran) 4 mg IV Q4H PRN PRN PRN Reason: Nausea Last Admin: 03/13/20 20:38 Dose: 4 mg Documented by: Oxycodone HCl (Oxyir) 5 - 10 mg PO Q4H PRN PRN PRN Reason: Pain Score 4-10/10 Last Admin: 03/14/20 00:01 Dose: 5 mg Documented by: Prochlorperazine Edisylate (Compazine Iv) 10 mg IV Q6H PRN PRN PRN Reason: NAUSEA Senna/Docusate Sodium (Senokot-S, Johanna-Colace) 1 - 2 tablet PO DAILY PRN PRN Reason: Constipation Last Admin: 03/13/20 05:06 Dose: 1 tablet Documented by: Simethicone (Mylicon) 80 mg PO PCHS PRN PRN Reason: Indigestion/stomach pain Last Admin: 03/14/20 09:38 Dose: 80 mg Documented by: Sodium Chloride () 5 - 15 ml IV UD PRN PRN Reason: SALINE FLUSH Last Admin: 03/14/20 03:08 Dose: 10 ml Documented by: Discharge Diet: No Restrictions Discharge Activity: Return to Normal Activity, May Not Drive - for 2 weeks, May not drive while taking narcotic pain medications., May Shower, May Take a Tub Bath - in 7 days. May resume sexual activity in: 4-6 weeks Additional Activity Instructions:: Nothing in the vagina for 4-6 weeks. You may return to work/school in 6 weeks. Call your doctor if your incision/area has: Continuous Slow Oozing, Sudden Increased Bleeding, Increased Pain/ Swelling, Increased Redness, Foul Smelling Discharge Call your doctor if you observe: Fever of 101 or Higher, Using more than one pad per hour - for 2 hours Suture Line Care: Avoid Pulling/Pushing, Avoid Pinching/Bending Cleanse incision/area with: Keep Dressing Clean & Dry Home Medications: Medications to take at Discharge One Tablet 1 tab PO DAILY 03/12/20 Ibuprofen [Motrin] 800 mg PO TID PRN PRN #60 tab 03/13/20 Oxycodone [Oxyir] 5 mg PO Q6H PRN PRN 7 Days #15 tab 03/13/20 Following Prescrptions Were Given to Patient: Ibuprofen [Motrin] 800 mg PO TID PRN PRN #60 tab PRN Reason: Pain Transmission Status: Received by [id number] Oxycodone [Oxyir] 5 mg PO Q6H PRN PRN 7 Days #15 tab PRN Reason: severe pain Transmission Status: Received by [id number] Primary Care Physician: Barrera Davies MD [Primary Care Provider] - Please Follow Up With: Liliam Farias MD - Call to make an appointment for an incision check in 1-2 [phone] When: You will need a post check in 6 weeks. Medical Necessity - Tobacco Use Smoking Status: Never smoker Meaningful Use Info Meaningful Use Diagnoses (Choose all that apply): None applicable
--- NOTE | 2020-03-14 11:33 | CHAPLAIN ---
Type of Pastoral Visit _x__ Initial Visit ___ Follow-up Visit ___ On-call Visit ___ General Patient Visit ___ Spiritual Assessment ___ Family Conference _x__ Bereavement ___ Rapid Response ___ Code Blue ___ Other (describe below) Pastoral Care Referral From ___ Patient _x__ Family ___ Nurse ___ Physician ___ Millinery Blocker ___ Dispute Resolution Analyst _x__ Other (describe below) Sacrament/Intervention _x__ Active listening ___ Anointing ___ Uatsdin _x__ Bereavement ___ Communion ___ Cortney exploration ___ ___ Life review _x__ Prayer ___ Reconciliation ___ Sacrament of Sick _x__ Supportive presence ___ Wedding ___ Other (describe below) Pastoral Comments learned of the stillbirth of one twin during rounds in on 03/13/20 from staff members; patient and her were approached by RN and SW about possible support and parents welcomed spiritual care support for this date 03/14/20; both mother and father of stillborn were in room along with living child; offered presence and listening support; gave Becky pradhan Notes on coping with loss of a child; father was talkative and expressed their mixture of miguel angel and sorrow; both parents indicate they have good family support for future days and that their cortney will be a foundation for them; father expresses appreciation for hospital staff in all they have done for us; father welcomes prayer
[2020-03-14] MEDS: Naproxen 250 MG Tablet PO (12:07)
[2020-03-14 13:52] VITALS: BP 122/85; PULSE 82; RESP 16; TEMP 37
[2020-03-15 11:26] LABS: Pathology Specimen OB SEE PATHOLOGY REPORT
== END 2020-03-14 13:45 | disposition home or self-care (01) | DRG 787 ==
PROVIDERS: Advanced Practice Midwife; Admitting Provider Obstetrics & Gynecology; PCP Family Medicine; Visit Provider Obstetrics & Gynecology
DX: O30.043 Twin pregnancy, dichorionic/diamniotic, third trimester (principal); O36.4XX1 Maternal care for intrauterine death, fetus 1; O48.0 Post-term pregnancy; O32.8XX1 Maternal care for other malpresentation of fetus, fetus 1; O69.0XX1 Labor and delivery complicated by prolapse of cord, fetus 1; Z3A.41 41 weeks gestation of pregnancy; Z37.3 Twins, one liveborn and one stillborn
CPT/HCPCS: 80307; 81001; 85025; 85027; 86592; 86703; 86762; 86803; 86850; 86900; 86901; 87340; 87491; 87591; 88307; 99218; 99251; J7120; A4216; G0378; G0463; J2405

== ENCOUNTER 2021-06-16 11:00 | Outpatient (CLI) | payer OTHER, SELFPAY ==
[2020-03-12 04:16] VITALS: BMI 28.7
[2021-06-16 11:09] VITALS: BP 127/80; PULSE 104; TEMP 36.7
[2021-06-16] MEDS: Lactated Ringers 1,000 ML 125 ML IV (11:20)
[2021-06-16 11:33] VITALS: BMI 30.3
--- NOTE | 2021-06-19 09:45 | OB.TRI.NOTE ---
HPI - General General Date of Admission: 06/16/21 Date of Service: 06/16/21 Chief Complaint: breech HPI Narrative IGNACIA BANG, is a 21-year-old 2 para 1 who presented at 38-1/7 weeks gestation with EDC of 06/29/2021 for external cephalic version. Patient was seen in the office last week and was diagnosed as having a breech baby. Risk benefits and alternatives to attempted external cephalic version at term were discussed with patient, questions were answered to her satisfaction she wanted to proceed. She arrived to labor and delivery and had monitoring. She denies any vaginal bleeding or leaking of fluid. No regular contractions. PFSH PFSH Home Medications One Tablet 1 tab PO DAILY 03/12/20 [History Last Taken 06/16/21 08:00] ibuprofen 800 mg PO TID PRN PRN #60 tab 03/13/20 [Rx Last Taken Unknown] ferrous sulfate 325 mg PO DAILY 06/16/21 [History Last Taken 06/16/21 08:00] Allergy/AdvReac Type Severity Reaction Status Date / Time No Known Allergies Allergy Verified 06/16/21 11:36 Social History (System 03/22/20 @ 12:10 by Jenn Haider) Smoking Status: Never smoker History Elective abortions Hx Para 0 Spontaneous abortions Hx # Term Pregnancies Ectopic pregnancies Hx # Pregnancies Multiple births # of living children ROS Constitutional Constitutional: Denies fatigue, fever(s) or malaise Eyes Eyes: Denies change in vision ENT HEENT: Denies dizziness or headache(s) Cardiovascular Cardiovascular: Denies chest pain, dyspnea or lightheadedness Respiratory/Chest Respiratory/Chest: Denies cough or dyspnea Gastrointestinal Gastrointestinal: Denies change in bowel habits Genitourinary Genitourinary: Denies burning urination or genital lesions Integumentary Integumentary: Denies rash Neurologic Neurologic: Denies confusion, dizziness, headache(s), numbness or weakness Physical Exam Const alert and no apparent distress General Appearance: cooperative HEENT normocephalic Resp normal respiratory effort Cardio regular rate GI soft to palpation GI Narrative: gravid, nontender, appropriate for gestational age Extremity no calf tenderness General Extremity: edema Skin no wounds Rashes: No rashes noted Psych activity/motor behavior normal NST FHR Rate Baby A Baseline: 160 Variability:: Moderate Accelerations:: 15 x 15 Decelerations:: None NST Reactive:: Yes FHR Category:: Category I Uterine Activity:: quiet Assessment & Plan (1) Supervision of other high risk pregnancies, third trimester: PLAN: Risk benefits and alternatives to attempted external cephalic version were reviewed with the patient, her questions were answered to her satisfaction she desired to proceed. Brief ultrasound was performed which revealed that actually the fetus had converted to vertex spontaneously since her last office visit. NST is reactive. Head does still seem somewhat unengaged but is definitely vtx.. Discussed with the patient follow-up in the office at the end of this week, or as needed. Patient is comfortable with this plan. (2) Breech presentation, antepartum: (3) 38 weeks gestation of : (4) Previous delivery affecting :
== END 2021-06-16 12:16 | disposition home or self-care (01) ==
LOC: WPOUT 11:02 → WP 11:03
PROVIDERS: PCP Family Medicine; Visit Provider Obstetrics & Gynecology
DX: O09.893 Supervision of other high risk pregnancies, third trimester (principal); O32.1XX0 Maternal care for breech presentation, not applicable or unspecified; O34.219 Maternal care for unspecified type scar from previous cesarean delivery; Z3A.38 38 weeks gestation of pregnancy
CPT/HCPCS: 96360; 59050; 59412; 99218; J7120; G0378

== ENCOUNTER 2021-07-01 01:10 | Inpatient (IN) | payer SELFPAY, OTHER ==
[2021-06-30 23:48] VITALS: BP 132/84; PULSE 104; TEMP 36.3
[2021-06-30 23:55] VITALS: BMI 30.7
[2021-07-01] VITALS (18 sets, daily range): BP systolic 115–142; BP diastolic 75–92; PULSE 83–108; RESP 16–18; TEMP 36.3–36.5; O2SAT 96–98
[2021-07-01] MEDS: Lactated Ringers 1,000 ML 200 ML IV (01:25)
[2021-07-01 01:47] LABS: Absolute Lymphocyte Count 1.71 X10^3/uL (0.83-4.51); Absolute Neutrophil Count 19.3 X10^3/uL (2.0-7.7); Basophil# 0.05 X10^3/uL; Basophil% 0.2 % (0-1); Eosinophil# 0.01 X10^3/uL; Hematocrit 41.4 % (37-47); Hemoglobin 14.7 g/dL (12.0-15.0); Lymphocyte # 1.71 X10^3/ul (0.83-4.51); Lymphocyte % 7.6 % (19-41); Mean Corp Hgb Conc 35.5 g/dL (32-36); Mean Corpuscular Hgb 32.3 pg (27.0-32.0); Mean Platelet Vol. 10.8 fl (6.2-12.0); Monocyte# 1.29 X10^3/uL; Monocyte% 5.7 % (0-10); NRBC Flagged by Analyzer 0 % (0-5); Neutrophil % 85.7 % (47-70); Platelet Count 221 K/mm3 (150-450); RBC Distribution Width CV 12.1 % (11.6-14.6); Red Blood Count 4.55 M/mm3 (4.2-5.4); White Blood Count 22.6 K/mm3 (4.4-11.0)
[2021-07-01 02:21] LABS: Bedside Glucose 133 mg/dL (70-110)
--- NOTE | 2021-07-01 02:38 | PCM.HP.OB ---
HPI - General General Date of Admission: 07/01/21 HPI Narrative IGNACIA BANG, is a 21 F who presents at 40w2d in labor. Maternal Data Information STANLEY Calculator Estimated Delivery Date Method Current WG Current Estimate 06/29/21 LMP (Uncertain) 40w 2d Other Estimates 07/01/21 Ultrasound #1 40w 0d PFSH PFSH Medical History (Updated 07/01/21 @ 02:[address] Rand Reyna, ) Family history of hearing loss at age younger than 7 years Stillborn, normal Home Medications One Tablet 1 tab PO DAILY 03/12/20 [History Last Taken 06/16/21 08:00] ibuprofen 800 mg PO TID PRN PRN #60 tab 03/13/20 [Rx Last Taken Unknown] ferrous sulfate 325 mg PO DAILY 06/16/21 [History Last Taken 06/16/21 08:00] Allergy/AdvReac Type Severity Reaction Status Date / Time No Known Allergies Allergy Verified 06/30/21 23:55 Surgical History (Updated 07/01/21 @ 02:[address] Rand Reyna, ) Previous section Social History (System 03/22/20 @ 12:10 by Jenn Haider) Smoking Status: Never smoker History Elective abortions Hx Para 1 Spontaneous abortions Hx # Term Pregnancies Ectopic pregnancies Hx # Pregnancies Multiple births # of living children NST FHR Rate Baby A Baseline: 135 Variability:: Moderate Accelerations:: 15 x 15 Decelerations:: None FHR Category:: Category I Uterine Activity:: Regular ctx Vital Signs Vital Signs Vital Signs: 06/30/21 23:48 Temperature 97.4 F L Temperature Source Temporal Pulse Rate 104 H Blood Pressure 132/84 H BP Systolic 132 BP Diastolic 84 Weight Weight: 168 lb 3.2 oz Body Mass Index (BMI) 30.7 Labs Labs Labs: Blood Type O POSITIVE Antibody Screen NEGATIVE Hct 41.4 % (37-47) Hgb 14.7 g/dL (12.0-15.0) Rubella IgG Antibody 0.7 IU/mL Hep Bs Antigen Non-Reactive (Nonreactive) HIV 1&2 Antibody Non-Reactive (Nonreactive) C.trachomatis DNA (PCR) Negative (Negative) Rhogam given: No Assessment & Plan (1) 40 weeks gestation of : PLAN: - Admit for routine intrapartum care - GBS negative - Discussed risks/benefits/alternatives of a TOLAC and patient desires to TOLAC - Patient declines epidural catheter placement and understands that if an emergent section is needed she will need general anesthesia - AROM performed for clear fluid - Pelvis adequate and EFW anticipated to be < 4500g - BG on admission - Expect (2) History of section: (3) History of IUFD:
[2021-07-01] MEDS: 0.9% Saline Lock 10 ML Syringe IV (04:04)
[2021-07-01] MEDS: Oxytocin 30 units/NS 500 ml 30 UNITS/500 ML IV.SOLN 334 UNITS IV (04:05)
--- NOTE | 2021-07-01 04:19 | OP.PCM_ITS ---
Problems Associated Problem List Diagnoses (1) History of section: (2) 40 weeks gestation of : (3) History of IUFD: Report of Operation Date of Procedure: 07/01/21 Pre-Operative Diagnosis: 40 week gestation, active labor, TOLAC, prior section Post-Operative Diagnosis: As above Surgery/Procedure Performed:: Description of Surgical Findings:: Infant delivered in left occiput anterior position. Loose nuchal cord x1 noted. Uterine incision intact. Surgeon: Rand Reyna Type of Anesthesia: None Special Medications: None Specimen's removed: Placenta Drains: None Estimated Blood Loss (mL): 200 Fluids Replaced: N/A Description of Procedure: The patient was complete and pushing. The head of the was delivered in left occiput anterior position. A loose nuchal cord was reduced. The anterior shoulder was delivered with gentle traction followed by the posterior shoulder and body of the infant. The infant was delivered without any force or delay, and a viable male infant was placed on the maternal abdomen. The cord was clamped and cut after 60 sec delay. Cord blood was obtained. The placenta was delivered with massage. The placenta was noted to be normal- appearing and intact with a three-vessel cord. There were several gushes of blood noted, and therefore the uterus was explored x1. Clot was removed from the uterus and the incision was noted to be intact. No retained placenta or membranes were noted. Methergine x1 was given. A first-degree vaginal laceration was repaired with 3-0 Vicryl in usual fashion. The fundus was firm and bleeding hemostatic. Vaginal sweep was performed. Apgars 9,9 Loose nuchal cord without compression x 1 Grafts/Implants Used: None Complications None Admit VTE Documentation VTE Present on Admission: No VTE Pharm Prophylaxis ordered?: No
[2021-07-01] MEDS: Methylergonovine 0.2 MG/ML Ampul IM (04:55)
[2021-07-01 05:16] LABS: Bedside Glucose 155 mg/dL (70-110)
[2021-07-01 06:06] LABS: Bedside Glucose 144 mg/dL (70-110)
[2021-07-01] MEDS: Ibuprofen 600 MG Tablet PO ×3 (06:09→21:36)
--- NOTE | 2021-07-01 07:36 | NURSING ---
pt stated she got up and used the restroom no c/o dizziness, states bleeding was okay, tolerated well and able to void
[2021-07-01 07:50] LABS: Absolute Lymphocyte Count 1.67 X10^3/uL (0.83-4.51); Absolute Neutrophil Count 22.9 X10^3/uL (2.0-7.7); Basophil# 0.06 X10^3/uL; Basophil% 0.2 % (0-1); Hematocrit 42.8 % (37-47); Hemoglobin 15.2 g/dL (12.0-15.0); Lymphocyte # 1.67 X10^3/ul (0.83-4.51); Lymphocyte % 6.3 % (19-41); Mean Corp Hgb Conc 35.5 g/dL (32-36); Mean Corpuscular Hgb 32.5 pg (27.0-32.0); Mean Corpuscular Volume 91.5 fL (81-99); Mean Platelet Vol. 10.7 fl (6.2-12.0); Monocyte# 1.75 X10^3/uL; Monocyte% 6.6 % (0-10); NRBC Flagged by Analyzer 0 % (0-5); POSITIVE DIFFERENTIAL YES; Platelet Count 265 K/mm3 (150-450); Red Blood Count 4.68 M/mm3 (4.2-5.4); White Blood Count 26.6 K/mm3 (4.4-11.0)
[2021-07-01 07:51] LABS: Differential Indicated SCAN CRITERIA MET
[2021-07-02 01:08] VITALS: BP 113/70; PULSE 71; RESP 16; TEMP 35.9
[2021-07-02 01:10] VITALS: BP 113/70; PULSE 71
[2021-07-02 06:26] LABS: Hemoglobin 13.1 g/dL (12.0-15.0); Mean Corp Hgb Conc 34.5 g/dL (32-36); Mean Corpuscular Hgb 32.3 pg (27.0-32.0); Mean Corpuscular Volume 93.6 fL (81-99); Mean Platelet Vol. 10.5 fl (6.2-12.0); Platelet Count 230 K/mm3 (150-450); RBC Distribution Width CV 12.3 % (11.6-14.6); RBC Distribution Width SD 42.5 fl (35.1-43.9); Red Blood Count 4.06 M/mm3 (4.2-5.4); White Blood Count 14.6 K/mm3 (4.4-11.0)
--- NOTE | 2021-07-02 07:58 | PN.OBGYN_ITS ---
Subjective Subjective patient seen at bedside, doing well. Patient reports good pain control. lochia mild. breast feeding. Objective Data Objective Data Vital Signs: Vital Signs Temp Pulse Resp BP Pulse Ox 96.6 F L 71 16 113/70 98 07/02/21 01:08 07/02/21 01:10 07/02/21 01:08 07/02/21 01:10 07/01/21 12:49 Oxygen Delivery Method Room Air Weight: 76.294 kg Body Mass Index (BMI) 30.7 Intake & Output: Intake and Output for Last 24 Hours 06/30/21 07/01/21 07/02/21 23:59 23:59 23:59 Intake Total 655.88 / 655.88 Output Total 1500 / 1500 Balance -844.12 / -844.12 Lab / Micro Data Result Diagrams: 07/02/21 06:10 Labs: Laboratory Results - last 24 hr 07/01/21 07:30: Diff Path Review March07/02/21 06:10: WBC 14.6 H, RBC 4.06 L, Hgb 13.1, Hct 38.0, MCV 93.6, MCH 32.3 H , MCHC 34.5, RDW Std Deviation 42.5, RDW Coeff of Jon 12.3, Plt Count 230, MPV 10.5 Micro: Microbiology 07/01/21 01:45 Mucosa - Nose SARS-CoV-2 Antigen (Rapid) - Final Physical Exam Const alert and oriented x3 General Appearance: cooperative HEENT normocephalic Neck General: normal visual inspection GI soft to palpation and non-distended GI Narrative: Fundus firm Extremity normal to inspection and no calf tenderness Skin no rashes or lesions noted Neuro oriented x3 and CN's II-XII intact bilaterally Psych mental status grossly normal Assessment & Plan (1) , delivered: PLAN: PPD# 1 , Doing well Routine care pain mgmt ambulation dc home
--- NOTE | 2021-07-02 08:00 | PCM.DC ---
Discharge Instructions Diet Discharge Diet: No restrictions Activity May resume sexual activity in: 6-8 weeks Dressing / Incision Call your doctor if you observe: Fever of 101 or Higher, Inability to urinate, Using more than 1 pad per hour and Uncontrolled pain Follow Up Care Please Follow Up With: Rand Reyna DO When: 1-2 weeks post and again at 6 weeks post . [phone] Test Results: Test results from this visit will be discussed in further detail at your follow-up appointment, if applicable. Discharge Plan Admission Admit Date/Time: 07/01/21 01:10 Attending Provider: Rand Reyna Primary Care Provider: Barrera Davies Instructions Forms: Information Discharge Orders/Prescriptions Prescriptions: New acetaminophen 500 mg Tablet 1,000 mg PO Q6H PRN PRN (Reason: Pain 1-10 Or Fever) Qty: 0 RF: 0 Continued One Tablet 1 tab PO DAILY RF: 0 ibuprofen 800 MG tablet 800 mg PO TID PRN PRN (Reason: Pain) Qty: 60 RF: 1 ferrous sulfate 325 mg (65 mg iron) Tablet 325 mg PO DAILY RF: 0 Referrals / Follow Up: Barrera Davies MD [Primary Care Provider] - Disposition Disposition (needs filled in before D/C Order can be placed): Home, Self Care
[2021-07-02 08:20] VITALS: BP 118/72; PULSE 88
[2021-07-02 08:24] VITALS: BP 118/72; PULSE 88; RESP 16; TEMP 36.6
[2021-07-02] MEDS: Ibuprofen 600 MG Tablet PO (09:59)
[2021-07-02 12:37] VITALS: BP 117/72; PULSE 93
[2021-07-02 12:39] VITALS: BP 117/72; PULSE 93; RESP 16; TEMP 36.8
[2021-07-02 12:58] LABS: Pathologist Review Reviewed
== END 2021-07-02 13:00 | disposition home or self-care (01) | DRG 807 ==
LOC: WPOUT 01:21 → WP 01:21
PROVIDERS: Advanced Practice Midwife; Admitting Provider Obstetrics & Gynecology; PCP Family Medicine; Visit Provider Obstetrics & Gynecology
DX: O34.219 Maternal care for unspecified type scar from previous cesarean delivery (principal); Z37.0 Single live birth; O69.81X0 Labor and delivery complicated by cord around neck, without compression, not applicable or unspecified; O70.0 First degree perineal laceration during delivery; Z3A.40 40 weeks gestation of pregnancy; Z87.59 Personal history of other complications of pregnancy, childbirth and the puerperium
CPT/HCPCS: 59025; 59050; 82962; 85025; 85027; 86850; 86900; 86901; 87426; 99218; J7120; A4216; G0378

== ENCOUNTER 2024-09-01 21:36 | Inpatient (IN) | payer SELFPAY, OTHER ==
[2024-09-01] VITALS (20 sets, daily range): BP systolic 123–147; BP diastolic 77–93; PULSE 47–95; RESP 16–18; TEMP 36.4–36.7; O2SAT 91–99; BMI 30.2
--- NOTE | 2024-09-01 20:29 | PCM.HP.OB ---
HPI - General General Date of Admission: 09/01/24 HPI Narrative IGNACIA BANG, is a 24 F at 40 weeks gestation who presents to triage with contractions that started earlier today. She has history of successful VBACs x 2 and desires an unmedicated labor and delivery. Maternal Data Information STANLEY Calculator Estimated Delivery Date Method Current WG Current Estimate 09/01/24 Manual 40w 0d Final STANLEY: 09/01/24 Final STANLEY Source: LMP PFSH PFSH Medical History (Updated 09/01/24 @ 22:56 by Rosa Leger CNM) Family history of hearing loss at age younger than 7 years Stillborn, normal Home Medications ?Medication ?Instructions ?Recorded ?Last Taken ?Type One Tablet 1 tab PO DAILY Check with primary 03/12/20 09/01/24 History doctor Allergy/AdvReac Type Severity Reaction Status Date / Time No Known Allergies Allergy Verified 09/01/24 20:04 Surgical History (Updated 09/01/24 @ 20:33 by Rosa Leger CNM) Previous section Social History (System 03/22/20 @ 12:10 by Jenn Haider) Smoking Status: Never smoker History Elective abortions Hx Para 4 Spontaneous abortions Hx # Term Pregnancies Ectopic pregnancies Hx # Pregnancies Multiple births # of living children NST FHR Rate Baby A Baseline: 140 Variability:: Moderate Accelerations:: 15 x 15 Decelerations:: None NST Reactive:: Yes FHR Category:: Category I Uterine Activity:: TOCO reading every 2-3 minutes ROS Eyes Eyes: Denies blurry vision, change in vision or spots in vision ENT HEENT: Denies dizziness or headache(s) Cardiovascular Cardiovascular: Denies abdominal pain, chest pain or dyspnea Respiratory/Chest Respiratory/Chest: Denies cough, dyspnea, shortness of breath at rest or shortness of breath with exertion Gastrointestinal Gastrointestinal: Denies abdominal pain, diarrhea or vomiting Genitourinary Genitourinary: Denies change in urinary stream, difficulty urinating or dysuria Musculoskeletal Musculoskeletal: Reports none Integumentary Integumentary: Denies rash Neurologic Neurologic: Denies dizziness, headache(s), memory loss or weakness Psychiatric Psychiatric: Reports none Vital Signs Vital Signs Vital Signs: 09/01/24 19:48 09/01/24 19:48 09/01/24 19:48 Temperature Temperature Source Pulse Rate 86 87 Respiratory Rate Blood Pressure 125/85 H BP Systolic 125 BP Diastolic 85 Pulse Ox 09/01/24 19:48 09/01/24 19:48 09/01/24 19:48 Temperature Temperature Source Temporal Pulse Rate Respiratory Rate 18 Blood Pressure BP Systolic BP Diastolic Pulse Ox 96 09/01/24 19:48 Temperature 98.0 F Temperature Source Pulse Rate Respiratory Rate Blood Pressure BP Systolic BP Diastolic Pulse Ox Weight Weight: 170 lb 6.677 oz Body Mass Index (BMI) 30.2 Physical Exam Const alert, oriented x3 and no apparent distress General Appearance: cooperative Orientation / Consciousness: awake Exam Limitations: no limitations HEENT normocephalic Head and Scalp: normal to inspection Eyes General Eye: normal appearance of both eyes Neck full ROM and no lymphadenopathy Lymph Lymphatic: no lymphadenopathy noted Chest inspection of chest normal Resp normal respiratory effort, normal air movement and clear to auscultation bilaterally Effort and Inspection: able to speak in complete sentences and symmetric chest movement Cardio regular rate and regular rhythm GI normal to inspection, nondistended, normoactive bowel sounds Manual OB Exam: presentation cephalic and dilated 4 Back/Spine normal ROM Extremity full ROM and no calf tenderness Skin no rashes or lesions noted General Skin Exam: no breakdown Neuro oriented x3 and CN's II-XII intact bilaterally Psych mental status grossly normal and thought process normal Labs Labs Labs: Blood Type O POSITIVE Antibody Screen NEGATIVE Hct 39.2 % (37-47) Hgb 14.1 g/dL (12.0-15.0) Syphilis Total Ab Non-reactive Rubella IgG Antibody 0.7 IU/mL Hep Bs Antigen Non-Reactive (Nonreactive) Hepatitis C Antibody Non-Reactive (Nonreactive) HIV 1&2 Antibody Non-Reactive (Nonreactive) Rhogam given: No Assessment & Plan (1) History of section: (2) 40 weeks gestation of : (3) Supervision of other high risk pregnancies, third trimester: (4) Hx successful (vaginal after ), currently : (5) Rubella non-immune status, antepartum: PLAN: Plan CE 4-5 cm/90/0 Admit to labor and delivery Routine labs Start IV and run fluids per orders GBS negative Anticipate / Dr. Hernandez notified of admission and desire for
[2024-09-01] MEDS: 0.9% Saline Lock 10 ML Syringe IV ×2 (21:55→22:35)
[2024-09-01 22:04] LABS: Absolute Lymphocyte Count 1.68 X10^3/uL (0.83-4.51); Basophil# 0.05 X10^3/uL; Basophil% 0.3 % (0-1); Hematocrit 39.2 % (37-47); Hemoglobin 14.1 g/dL (12.0-15.0); Lymphocyte # 1.68 X10^3/ul (0.83-4.51); Lymphocyte % 8.9 % (19-41); Mean Corpuscular Hgb 32.6 pg (27.0-32.0); Mean Corpuscular Volume 90.5 fL (81-99); Mean Platelet Vol. 10.9 fl (6.2-12.0); Monocyte# 0.89 X10^3/uL; Monocyte% 4.7 % (0-10); NRBC Flagged by Analyzer 0 % (0-5); Neutrophil # 16.01 X10^3/uL (2.7-7.7); Neutrophil % 85.3 % (47-70); Platelet Count 194 K/mm3 (150-450); RBC Distribution Width CV 11.8 % (11.6-14.6); RBC Distribution Width SD 38.7 fl (35.1-43.9); Red Blood Count 4.33 M/mm3 (4.2-5.4); White Blood Count 18.8 K/mm3 (4.4-11.0)
[2024-09-01] MEDS: Oxytocin 10 UNITS/ML Vial IM (22:37)
[2024-09-01] MEDS: Oxytocin 15 Units/NS 250ml 15 UNITS/250 ML IV.SOLN 83 UNITS IV (22:37)
[2024-09-01 22:42] LABS: Syphilis Antibodies Non-reactive
--- NOTE | 2024-09-01 22:50 | EX.PCM.OBVAG ---
Assessment & Plan (1) , delivered: (2) Precipitous delivery: (3) Rubella non-immune status, antepartum: (4) Mother currently breast-feeding: Maternal Data Information STANLEY Calculator Estimated Delivery Date Method Current WG Current Estimate 09/01/24 Manual 40w 0d Vaginal Delivery Maternal Presentation Maternal Presentation: Other (Spontaneous onset of labor) Maternal Presentation: at 40 weeks gestation that presented in spontaneous onset of labor. Vaginal Delivery Information Procedure Performed: Surgeon/Practitioner: Rosa Leger Date of Procedure: 09/01/24 Pre-Procedure Diagnosis: Term gestation, Spontaneous onset of labor Post-Procedure Diagnosis: , live female infant Type of anesthesia: None Estimated Blood Loss: 200 Time of Delivery: 22:35 Findings Description of procedure: Patient arrived to unit in spontaneous labor and quickly progressed. Called to room due to patient feeling like she needed to push. A.R.O.M for moderate amount of clear fluid. Patient began to bear down. With one push, head delivered over intact perineum followed immediately by anterior shoulder and remainder of infant body. Vigorous female placed on maternal abdomen and was attended to by nursing staff. Pitocin IM given to start active management of the third stage of labor. 3 vessel cord clamped and cut by myself after delay and cord blood collected. Infant placed skin to skin with patient. Placenta delivered spontaneously and intact. Perineum and vagina intact. Fundus firm. Vaginal sweep completed. Hemostasis obtained. Patient and bonding well at this time. Dr. Hernandez notified of delivery. Presentation: Vertex Amniotic Membrane Rupture Type: Artificial Amniotic Fluid Description: Clear Placental Delivery Description: Spontaneous Placenta Disposition: [facility] Specimen collected: No Cord Vessel Description: 3 Vessels Cord Entanglement: None A Gender: Female (1 minute): 9 (5 minute): 9 Delayed Cord Clamping: Yes Health Administration Teacher medical records administrator: No Post Vaginal Deli Medications given after delivery: IV Pitocin and IM Pitocin Episiotomy Description: None Laceration: None Complication Complications: No
[2024-09-02] VITALS (25 sets, daily range): BP systolic 114–124; BP diastolic 65–84; PULSE 60–103; RESP 16–18; TEMP 36.3–36.7; O2SAT 94–99
--- NOTE | 2024-09-02 12:50 | CASEMGMT ---
Social Work Assessment Labor and Delivery Unit Patient Address: [address] [place] [address] [address], [place] [address] Phone number: Date of Referral: 09/02/2024 Time of Referral: 07:18 Referred By: Rosa Leger Date of Intervention: ?09/02/2024 Time of Intervention: 12:50 Reason for Referral: PPD History obtained from: Medical records, mother of baby (MOB) and father of baby (FOB).? Household composition: MOB (Ester), FOB (Lora), sons Dwight, age 4 and Ba, age 3, daughter Leanne, age 1 and daughter Selina, born 09/01/2024. Patient's parent/guardian status: MOB and FOB are and have been together for 6.5 years and for over 5 years.? Both are actively involved and will be providing care for baby although the MOB will be the primary caregiver. MOB denied any concerns with domestic violence and described a positive and supportive relationship with the FOB. Medical History: ?RAE received PNC through [facility] beginning at 15 weeks and 0 days. RAE has had 4 pregnancies with the most recent being with twins.? One of the twins, a boy, had a cord prolapse and . One twin, Selina had the following Apgars: 9 and 9. Weight: 6lbs, 10 oz. Title One Reading Teacher: Dr. Rothman. Educational Status: MOB and FOB denied any issues or concerns with reading or writing. MOB and FOB both have an 8th grade education. Financial Status: MOB and FOB reported their income is sufficient to meet the needs of their family at this time. 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 Infant Supplies: MOB and FOB reported they have all the supplies they need for baby at this time including but not limited to: Car seat, pack-n-play, crib, diapers, bottles and clothing. Childcare/Caregiver(s):? RAE reported she will be the primary caregiver as a stay at home mom. Transportation:? No transportation issues identified. ? Programs/Agencies Involved: MOB and FOB denied any current programs or agencies involved at this time. Children Services/Legal Issues:? Denied. Behavioral Health Issues: ??Mental Health History: ??MOB has a history of PPD.?Substance Use History:? Denied. ???Family History: ?Denied.?? Drug Screens: ?None obtained at the time of this admission. ? Family/Social Stressors: ?Recent loss of a twin. Support Systems: Ample.? MOB and FOB identified their biggest supports as each other as well as ?s maternal grandmother (MGM) and paternal grandmother (PGM). Depression/Shaken Baby/Safe Sleeping: ornamental iron worker provided verbal and written education on PPD, Safe Sleeping and Shaken Baby.? Parents verbalized an understanding. ??? ASSESSMENT:? MOB and FOB provided consent to social work visit. Upon arrival, MOB was lying in the hospital bed with and the FOB was nearby in a chair. MOB and FOB reported they were doing ok and declined any loss/grief resources at this time stating MOB and FOB have an ample family and community support system at this time. MOB did the majority of the talking and appeared to be attached and bonded to , was observed to be very gentle and attentive to ?s needs and also began to breastfeed during the visit. ornamental iron worker observed positive interaction between the MOB and FOB during the visit. ornamental iron worker did request to speak with the MOB alone at the end of the visit which both MOB and FOB were agreeable to. MOB reported feeling safe in her home and denied any concerns of DV. MOB denied any concerns with drug or alcohol abuse with self or with the FOB or any extended family members and also denied any concerns of untreated mental health with self, the FOB or extended family members on either side. Safe Plan of Care for related to substance use: N/A; not needed. ? PLAN:? Baby to be discharged home when ready.? ornamental iron worker also provided written information on depression, depression resources and Help Me Grow as additional resources offered by case management social worker which MOB and FOB accepted. No other services requested or indicated. Jaye Mcconnell, BRANCH BILLING PAYROLL CLERK, BUSINESS APPLICATIONS MANAGER
--- NOTE | 2024-09-02 19:27 | PN.OBGYN_ITS ---
Subjective Subjective Patient seen at bedside. Denies any pain. Ambulating and voiding without difficulty. Lochia decreasing. Objective Data Objective Data Vital Signs: Vital Signs Temp Pulse Resp BP Pulse Ox O2 Del Method 97.5 F L 89 16 121/80 H 95 Room Air 09/02/24 17:25 09/02/24 17:25 09/02/24 17:25 09/02/24 17:25 09/02/24 17:25 09/02/24 17:25 Oxygen Delivery Method Room Air Weight: 170 lb 6.677 oz Body Mass Index (BMI) 30.2 Intake & Output: Intake and Output for Last 24 Hours 08/31/24 09/01/24 09/02/24 23:59 23:59 23:59 Intake Total 239.32 / 239.32 Output Total 200 / 200 Balance -200 / -200 239.32 / 239.32 Lab / Micro Data Attestation: I reviewed the patient's lab results. 09/01/24 21:55 Labs: Laboratory Results - last 24 hr 09/01/24 21:55: WBC 18.8 H, RBC 4.33, Hgb 14.1, Hct 39.2, MCV 90.5, MCH 32.6 H, MCHC 36.0, RDW Std Deviation 38.7, RDW Coeff of Jon 11.8, Plt Count 194, MPV 10.9, Immature Gran % (Auto) 0.800, Neut % (Auto) 85.3 H, Lymph % (Auto) 8.9 L, [place] % (Auto) 4.7, Eos % (Auto) 0.0, Baso % (Auto) 0.3, Absolute Neuts (auto) 16.0 H, Absolute Lymphs (auto) 1.68, Nucleated RBC % 0, Syphilis Total Ab Non- reactive, Blood Type O POSITIVE, Antibody Screen NEGATIVE ROS Eyes Eyes: Denies blurry vision, change in vision or spots in vision ENT HEENT: Denies dizziness or headache(s) Cardiovascular Cardiovascular: Denies abdominal pain, chest pain or dyspnea Respiratory/Chest Respiratory/Chest: Denies cough, dyspnea, shortness of breath at rest or shortness of breath with exertion Gastrointestinal Gastrointestinal: Denies abdominal pain, diarrhea or vomiting Genitourinary Genitourinary: Denies change in urinary stream, difficulty urinating or dysuria Musculoskeletal Musculoskeletal: Reports none Integumentary Integumentary: Denies rash Neurologic Neurologic: Denies dizziness, headache(s), memory loss or weakness Physical Exam Const alert and no apparent distress General Appearance: cooperative and comfortable Exam Limitations: no limitations HEENT normocephalic Eyes General Eye: normal appearance of both eyes Neck full ROM General: normal visual inspection Chest Chest: symmetrical chest wall rise Resp normal respiratory effort and normal air movement Effort and Inspection: symmetric chest movement Auscultation: clear to auscultation bilaterally Cardio regular rate and regular rhythm GI normal to inspection, nondistended, normoactive bowel sounds Back/Spine normal ROM Extremity full ROM and no calf tenderness General Extremity: normal exam except as noted Skin no rashes or lesions noted Neuro oriented x3 Speech: speech normal Psych mental status grossly normal Thought Process: normal thought process Assessment & Plan (1) Mother currently breast-feeding: (2) Precipitous delivery: (3) Rubella non-immune status, antepartum: (4) , delivered: PLAN: Plan PPD 1 support Anticipate discharge home tomorrow
[2024-09-03 02:24] VITALS: BP 116/85; PULSE 64; RESP 16; TEMP 36.5; O2SAT 96
[2024-09-03] MEDS: Ibuprofen 600 MG Tablet PO (02:49)
[2024-09-03 07:44] VITALS: BP 123/75; PULSE 76; RESP 16; TEMP 36.3; O2SAT 98
--- NOTE | 2024-09-03 08:10 | PCM.DC.SUM ---
Providers Date of Admission: 09/01/24 Primary Care Physician: Dr. Barrera Davies MD Reason For Visit: VAGINAL DELIVERY Diagnosis Discharge Diagnosis (1) Mother currently breast-feeding: Status: Acute Code(s): Z39.1 - Encounter for care and examination of lactating mother (2) Precipitous delivery: Status: Acute Code(s): O62.3 - Precipitate labor (3) Rubella non-immune status, antepartum: Status: Acute Code(s): O09.899 - Supervision of other high risk pregnancies, unspecified trimester; Z28.39 - Other underimmunization status (4) , delivered: Status: Acute Code(s): O34.219 - Maternal care for unspecified type scar from previous delivery Plan PPD 2 support D/C home with follow up in office Medications at Discharge Home Medications One Tablet 1 tab PO DAILY Check with primary doctor 03/12/20 acetaminophen 500 mg tablet 1,000 mg (2 x 500 mg) PO Q6H PRN PRN Pain 1-10 Or Fever #0 tabs 09/03/24 ibuprofen 600 mg tablet 600 mg PO Q6H PRN PRN Pain Score 1-10 #0 tabs 09/03/24 Hospital Course Operations None Procedures None Summary of Care Provided Minutes Spent on Discharge: 15 Hospital Course: Patient had vaginal delivery. Hospital course was uneventful. Physical Exam Narrative Patient seen at bedside. Denies pain. Ambulating and voiding without difficulty. Lochia decreased. Desires discharge home today. Const alert and oriented x3 General Appearance: Negative for in distress HEENT normocephalic Eyes General Eye: normal appearance of both eyes Neck General: normal visual inspection Chest Chest: symmetrical chest wall rise Resp normal respiratory effort and normal air movement Effort and Inspection: symmetric chest movement; Negative for tachypneic Auscultation: clear to auscultation bilaterally Cardio regular rate and regular rhythm Peripheral Pulses: pulses 2+ throughout GI normal to inspection, nondistended, normoactive bowel sounds Narrative: Ice to perineum OB / External & Speculum: vaginal bleeding and other Lochia decreasing Uterus Palpation: uterus fundus firm (Below U) Extremity normal to inspection, full ROM and normal capillary refill Skin no rashes or lesions noted Neuro oriented x3, CN's II-XII intact bilaterally and gait normal Psych mental status grossly normal, thought process normal and activity/motor behavior normal Weight / BMI Weight Weight: 170 lb 6.677 oz Body Mass Index (BMI) 30.2 ABG / Lab / Microbiology Data 09/01/24 21:55 D/C Instructions Discharge Diet: No restrictions Discharge Activity: Return to Normal Activity, No Restrictions, May Drive, May Shower and May Take a Tub Bath (Warm water only. No bath salts, soaps, bubbles) May resume sexual activity in: 6-8 weeks Weight Bearing Status: Weight bearing as tolerated Call your doctor if you observe: Fever of 101 or Higher, Inability to urinate, Using more than 1 pad per hour, Shortness of breath, Dizziness, Chest pain, Calf discomfort and Uncontrolled pain Please Follow Up With: [facility] Ramila FRANCO When: 2 weeks in office or virtual Meaningful Use Info Meaningful Use Meaningful Use Diagnoses (Choose all that apply): None applicable Ischemic Stroke Statin Dosing Therapy Reference: STATIN DOSE THERAPY REFERENCE: * Patients > 75 years receive moderate or high dose statin therapy. * Patients 75 years or YOUNGER should receive HIGH intensity statin dose unless contraindicated. You will be required to document reason for non-treatment if statin daily dose does not meet guidelines. HIGH DOSE STATIN THERAPY DAILY Atorvastatin > than or = to 40 mg Rosuvastatin > than or = to 20 mg Amlodipine + Atorvastatin > than or = to 2.5/40 mg Ezetimibe + Simvastatin 10/80 mg Simvastatin 80mg Discharge Plan Admission Admit Date/Time: 09/01/24 21:36 Primary Reason for Your Visit: Labor and Delivery Attending Provider: Rosa Leger Primary Care Provider: Barrera Davies Discharge Orders/Prescriptions Prescriptions: New acetaminophen 500 mg Tablet 1,000 mg PO Q6H PRN PRN (Reason: Pain 1-10 Or Fever) Qty: 0 0RF ibuprofen 600 mg Tablet 600 mg PO Q6H PRN PRN (Reason: Pain Score 1-10) Qty: 0 0RF Continued One Tablet 1 tab PO DAILY Referrals / Follow Up: Rosa Leger CNM [Med Staff - [facility] Practice [facility]] - Barrera Davies MD [Primary Care Provider] - Disposition Disposition (needs filled in before D/C Order can be placed): Home, Self Care
== END 2024-09-03 08:55 | disposition home or self-care (01) | DRG 807 ==
LOC: WPOUT 23:21 → WP 23:22
PROVIDERS: Admitting Provider Advanced Practice Midwife; PCP Family Medicine; Referring Provider Advanced Practice Midwife; Visit Provider Advanced Practice Midwife
DX: O62.3 Precipitate labor (principal); Z37.0 Single live birth; O34.219 Maternal care for unspecified type scar from previous cesarean delivery; Z3A.40 40 weeks gestation of pregnancy
CPT/HCPCS: 59025; 59050; 85025; 86780; 86850; 86900; 86901; 99221; A4216; G0378

== ENCOUNTER → 2025-04-06 | Outpatient (CLI) | payer OTHER, SELFPAY ==
[2025-04-06 12:56] LABS: Absolute Lymphocyte Count 3.16 X10^3/uL (0.83-4.51); Basophil# 0.04 X10^3/uL; Basophil% 0.4 % (0-1); Eosinophil# 0.06 X10^3/uL; Eosinophils% 0.5 % (0-5); Hematocrit 39.6 % (37-47); Hemoglobin 14.2 g/dL (12.0-15.0); Lymphocyte # 3.16 X10^3/ul (0.83-4.51); Lymphocyte % 28.6 % (19-41); Mean Corp Hgb Conc 35.9 g/dL (32-36); Mean Corpuscular Hgb 31.3 pg (27.0-32.0); Mean Corpuscular Volume 87.4 fL (81-99); Mean Platelet Vol. 11.2 fl (6.2-12.0); Monocyte# 0.79 X10^3/uL; Monocyte% 7.1 % (0-10); NRBC Flagged by Analyzer 0 % (0-5); Neutrophil # 6.97 X10^3/uL (2.7-7.7); Neutrophil % 63.1 % (47-70); Platelet Count 239 K/mm3 (150-450); RBC Distribution Width SD 38.5 fl (35.1-43.9); Red Blood Count 4.53 M/mm3 (4.2-5.4); White Blood Count 11.1 K/mm3 (4.4-11.0)
[2025-04-06 13:03] LABS: Hemoglobin A1c 5.1 % (<=5.6)
[2025-04-06 13:26] LABS: HIV Nonreactive (Nonreactive); Hepatitis B Surface Antigen Nonreactive (Nonreactive); Hepatitis C Antibody Nonreactive (Nonreactive); Rubella IgG Nonreactive (Nonreactive); Syphilis Antibodies Nonreactive (Nonreactive)
[2025-04-09 23:07] LABS: Chlamydia By Nucleic Acid AMP Negative (Negative); Gonococcus By Nucleic Acid AMP Negative (Negative)
== END | disposition home or self-care (01) ==
LOC: LAB 12:15
PROVIDERS: Registered Nurse; PCP Family Medicine; Referring Provider Advanced Practice Midwife; Visit Provider Advanced Practice Midwife
DX: O09.299 Supervision of pregnancy with other poor reproductive or obstetric history, unspecified trimester (principal); Z3A.00 Weeks of gestation of pregnancy not specified
CPT/HCPCS: 36415; 83036; 85025; 86703; 86762; 86780; 86803; 86850; 86900; 86901; 87086; 87088; 87340; 87491; 87591; 88175; G0145